=== PATIENT | female | born 1965 | race Caucasian/White ===

== ENCOUNTER → 2017-04-03 | Outpatient (CLI) | payer MEDICAID, OTHER ==
[~2017-04-03] MED LIST: ALBU8.5H2 IH; AMLO5TAB2 PO; ASP81TEC PO; ASPI-892 PO; AZIT500T PO; BSP5T PO; CEFU500T5 PO; CETI10TA20 PO; CLOP75TA PO; COLC0.6T PO; FLT05NA16 NSEACH; FLUO40CA PO; GABA-488 PO; HCT25T PO; HYDR-757 PO; HYDR1TAB PO; IBP800T PO; LAMO100T PO; LEVO500T80 PO; LISI10TA PO; LISI20TA PO; METO25TA6 PO; MTP25TSR PO; OMEP-10 PO; OMEP20CA12 PO; PNT40TEC PO; PRAV10TA23 PO; PRV20T PO; Pantoprazole PO; VENL100T2 PO; VENL75TA6 PO; [UNRECOGNIZED DRUG - CODE] PO; ibuprofen PO
--- NOTE | 2017-04-05 06:34 | ECHOCARDIOGRAPHY REPORT ---
DATE OF SERVICE: 04/03/2017 TWO DIMENSIONAL ECHOCARDIOGRAM REPORT MEASUREMENT: LVID end diastolic 5.4. IVS thickness 1.1. LVPW thickness 1.1. Left atrial diameter 4.2. Ejection fraction 60%. FINDINGS: 1. Technical quality is good. 2. The left ventricle is normal in size with mild left ventricular hypertrophy noted, diffusely systolic function appeared to be normal, estimated ejection fraction 60%, diastolic dysfunction is suggested by Doppler. 3. The left atrium is mildly dilated. No clot or thrombus were seen within the left atrium. 4. The right atrium and right ventricle are normal in size. No clot or thrombus were seen within the right side. 5. Mitral valve is normal in morphology with mild mitral regurgitation noted by color Doppler flow. No mitral valve prolapse. No mitral valve stenosis. 6. Aortic valve is trileaflet with normal opening and closing pattern. No significant aortic valve stenosis or regurgitation was seen. 7. Tricuspid valve is normal in morphology with mild tricuspid regurgitation noted by color Doppler flow. Doppler across the tricuspid valve estimated pulmonary artery pressure of 23+ right atrial pressure. 8. Pulmonic valve is functioning normally. 9. No pericardial effusion. CONCLUSION: 1. Normal left ventricular size and systolic function, estimated ejection fraction is 60%, diastolic dysfunction is suggested by Doppler. 2. Mildly dilated left atrium. 3. Mild mitral and tricuspid regurgitation. 4. Estimated pulmonary artery pressure of 30 mmHg. Job ID: [id number] DocumentID: [id number] Dictated Date: 04/04/2017 16:05:30 Provider Relations Advocate Date: 04/04/2017 20:32:57 Dictated By: MIR PERALTA MD
== END ==
LOC: CARD 09:38
PROVIDERS: ATTEND Physician Assistant
DX: I10 Essential (primary) hypertension (principal); E78.2 Mixed hyperlipidemia; E66.9 Obesity, unspecified; Z72.0 Tobacco use
CPT/HCPCS: 93306

== ENCOUNTER → 2017-04-04 | Outpatient (CLI) | payer MEDICAID, OTHER ==
[~2017-04-04] MED LIST changes: +CATHETER FLUSH 10 ML SYR IV PRN; +REGADENOSON 0.4 MG/5 ML SYR (LEXISCAN) IV ONE
[2017-04-04 09:33] VITALS: BP 144/62
--- NOTE | 2017-04-05 06:08 | STRESS TEST ---
DATE OF SERVICE: 04/04/2017 LEXISCAN MYOVIEW STRESS TEST REPORT REFERRING PHYSICIAN: [facility] [place] Baseline heart rate is 52, baseline blood pressure 144/62. Baseline EKG is sinus rhythm with no ischemic changes. In summary, the patient was injected with 10.76 mCi of technetium-99 Myoview and the resting images were obtained. Then, the patient received 0.4 mg of Lexiscan followed by 31.9 mCi of technetium-99 Myoview. Throughout the test, there were no EKG changes. The resting and stress images were reviewed and compared in the short axis, horizontal long axis and vertical long axis views. Review of the images showed apical thinning with no significant ischemia or infarction. SSS is 4, SDS 3, TID value 0.92. On the gated images, the left ventricle appeared to be normal size with normal contractility. Calculated ejection fraction 63%. CONCLUSION: 1. The patient tolerated Lexiscan well. 2. No ischemia or infarction on SPECT images. 3. Normal left ventricular size with normal contractility. Calculated ejection fraction 63%. Job ID: [id number] DocumentID: [id number] Dictated Date: 04/04/2017 15:04:55 Press Assistant And Feeder Date: 04/04/2017 19:50:20 Dictated By: MIR PERALTA MD
== END ==
LOC: CARD 07:26
PROVIDERS: ATTEND Physician Assistant
DX: I10 Essential (primary) hypertension (principal); E78.2 Mixed hyperlipidemia; E66.9 Obesity, unspecified; Z72.0 Tobacco use
CPT/HCPCS: 78452; 93017

== ENCOUNTER → 2019-02-26 | Outpatient (CLI) | payer OTHER ==
[~2019-02-26] MED LIST changes: -CATHETER FLUSH 10 ML SYR IV PRN; -REGADENOSON 0.4 MG/5 ML SYR (LEXISCAN) IV ONE
== END ==
LOC: CARD 11:19
PROVIDERS: ATTEND Internal Medicine Cardiovascular Disease
DX: R07.89 Other chest pain (principal); I10 Essential (primary) hypertension; E78.5 Hyperlipidemia, unspecified; I08.1 Rheumatic disorders of both mitral and tricuspid valves; Z72.0 Tobacco use
CPT/HCPCS: 93306

== ENCOUNTER → 2019-03-03 | Outpatient (CLI) | payer OTHER ==
[~2019-03-03] MED LIST changes: +CATHETER FLUSH 10 ML SYR IV PRN; +REGADENOSON 0.4 MG/5 ML SYR (LEXISCAN) IV ONE
[2019-03-03 08:52] VITALS: BP 137/67
[2019-03-03 08:55] VITALS: BP 165/77
--- NOTE | 2019-03-03 12:50 | STRESS TEST ---
DATE OF SERVICE: 03/03/2019 LEXISCAN MYOVIEW STRESS TEST REPORT REFERRING PHYSICIAN CARLOS A Mason Baseline heart rate is 54, baseline blood pressure is 137/67, baseline EKG is sinus rhythm with occasional atrial premature contractions. In summary, the patient was injected with 10.83 mCi of technetium-99 Myoview and the resting images were obtained. Then, the patient received 0.4 mg of Lexiscan, followed by 30.4 mCi of technetium-99 Myoview. Throughout the test, there were no EKG changes. The resting and stress images were reviewed and compared in the short axis, horizontal long axis, and vertical long axis views. Review of the images showed breast attenuation affecting the quality of the images. Still there was decreased uptake at the mid to apical anterior wall and anterolateral wall with reversibility. SSS is 5, SDS 5, TID value 1.03. On the gated images, the left ventricle appeared to be in normal size with normal contractility. Calculated ejection fraction 72%. IN CONCLUSION: 1. The patient tolerated Lexiscan well. 2. Breast attenuation with reversible ischemia involving the mid to apical anterior wall and anterolateral wall. 3. Normal left ventricular size with normal contractility. Calculated ejection fraction 72%. Job ID: [id number] DocumentID: [id number] Dictated Date: 03/03/2019 11:29:32 Drop Hammer Setter Up Date: 03/03/2019 12:49:21 Dictated By: MIR PERALTA MD
== END ==
LOC: CARD 07:31
PROVIDERS: ATTEND Internal Medicine Cardiovascular Disease
DX: R07.89 Other chest pain (principal); E78.5 Hyperlipidemia, unspecified; I10 Essential (primary) hypertension; Z72.0 Tobacco use
CPT/HCPCS: 78452; 93017

== ENCOUNTER 2019-03-12 06:34 | Day surgery (SDC) | payer OTHER ==
[~2019-03-12] VITALS: Ht 152.4 cm; Wt 90.7 kg
[~2019-03-12 06:34] MED LIST changes: -CATHETER FLUSH 10 ML SYR IV PRN; -REGADENOSON 0.4 MG/5 ML SYR (LEXISCAN) IV ONE
[2019-03-12] MEDS ORDERED: HEParin (CATH LAB) 2,000 ML IV ONE (06:47)
[2019-03-12] MEDS ORDERED: LIDOCAINE 1% INJ 20 ML 20 ML VIAL ONE (06:47)
[2019-03-12] MEDS ORDERED: NS IV 1000 ML 1,000 ML ONE (06:47)
[2019-03-12] MEDS ORDERED: NS IV 1000 ML 1,000 ML IV SCH ×2 (07:07→10:09)
[2019-03-12 07:18] VITALS: BP 168/74
[2019-03-12 07:28] LABS: HEMOGLOBIN 18.7 G/DL (11.5-16.0); MEAN PLATELET VOLUME 10.1 FL (7.4-10.4); RED CELL DISTRIBUTION WIDTH 14.8 % (10.0-14.5); WHITE BLOOD COUNT 10.7 10^3/uL (4.3-11.0)
--- NOTE | 2019-03-12 07:32 | Diagnostic Imaging Report ---
INDICATION: Preop. Comparison with 07/29/2016. FINDINGS: The lungs are well-aerated. There are no acute infiltrates. The heart is upper limits of normal. There is no evidence of pulmonary edema. No pneumothorax or pleural effusion. IMPRESSION: Postoperative residue with no acute changes. Dictated by: Dictated on workstation # [id number]
[2019-03-12 07:39] LABS: INR 0.9 (0.8-1.4)
[2019-03-12] MEDS ORDERED: METO50TA15 PO (07:45)
[2019-03-12] MEDS ORDERED: DULO60CA58 PO (07:45)
[2019-03-12] MEDS ORDERED: BREX2TAB PO (07:45)
[2019-03-12] MEDS ORDERED: GBPN600T PO (07:45)
[2019-03-12 07:46] LABS: ALANINE AMINOTRANSFERASE 27 U/L (0-55); ALBUMIN 4.2 GM/DL (3.2-4.5); ALKALINE PHOSPHATASE 110 U/L (40-136); BILIRUBIN,TOTAL 0.6 MG/DL (0.1-1.0); BUN/CREATININE RATIO 4; CARBON DIOXIDE 22 MMOL/L (21-32); CHLORIDE 106 MMOL/L (98-107); CHOLESTEROL 137 MG/DL (< 200); CREATININE SERUM 0.81 MG/DL (0.60-1.30); GFR ESTIMATED > 60; GLUCOSE 120 MG/DL (70-105); HDL CHOLESTEROL 25 MG/DL (40-60); POTASSIUM 3.7 MMOL/L (3.6-5.0); SODIUM 142 MMOL/L (135-145); TOTAL PROTEIN 7.2 GM/DL (6.4-8.2); TRIGLYCERIDES 261 MG/DL (<150); VLDL CHOLESTEROL 52 MG/DL (5-40)
[2019-03-12] MEDS ORDERED: MIDAZOLAM 5 MG/5 ML (VERSED) VIAL ONE (08:33)
[2019-03-12] MEDS ORDERED: fentaNYL INJECTION 100 MCG/2 ML AMP ONE ×2 (08:33→10:07)
--- NOTE | 2019-03-12 08:56 | Cardiac Procedure Note-CS/ASA ---
Pre-Procedure Note Pre-Op Procedure Note H&P Reviewed The H&P was reviewed, patient examined and no changes noted. Date H&P Reviewed: March 12, 2019 Time H&P Reviewed: 08:55 Conscious Sedation Pre-Proced Time 08:55 ASA Score 3 For ASA 3 and 4: Consider anesthesia and medical clearance. Also, for patients with a history of failed moderate sedation consider anesthesia. Airway Lungs Heart ASA score ASA 1: a normal healthy patient ASA 2: a patient with a mild systemic disease (mid diabetes, controlled hypertension, obesity x ASA 3: a patient with a severe systemic disease that limits activity (angina , COPD, prior Myocardial infarction) ASA 4: a patient with an incapacitating disease that is a constant threat to life (CHF, renal failure) ASA 5: a moribund patient not expected to survive 24 hrs. (ruptured aneurysm) ASA 6: a declared brain- patient whose organs are being harvested. For emergent operations, add the letter E after the classification Mallampati Classification Grade 3 Sedation Plan Analgesia, Amnesia, Plan communicated to team members, Discussed options with patient/fam, Discussed risks with patient/fam The patient is an appropriate candidate to undergo the planned procedure, sedation, and anesthesia. The patient immediately re-assessed prior to indication. MIR PERALTA MD March 12, 2019 08:56
--- NOTE | 2019-03-12 10:12 | Discharge Inst-Post CATH ---
Discharge Inst-CATH/EP Post Cardiac Cath/EP D/C Inst Follow Up/Plan Appointment with Dr. PERALTA's office in 2-4 weeks <b>CARDIAC CATH/EP PROCEDURE DISCHARGE INSTRUCTIONS</b> Cardiac Rehab Please be expecting a follow up call from Cardiac Rehab within in one week. ACTIVITY * Go Home directly and rest. * Limit activity of the leg (or wrist if it was used) for 7 days including aerobics, swimming, jogging, bicycling, etc. * Restrict stair-climbing for 7 days if possible, if not, climb up with your non -cath leg, then bring together on the same step. * Avoid lifting, pushing, pulling or excessive movement of the affected extremity for 7 days. * Customary sexual activity may be resumed after 2 days-use caution not to use a position that strains or causes pain to the affected extremity. * No driving for 24 hours. * NO SMOKING. * Avoid straining for bowel movements for 7 days. * Gentle walking on level ground is allowed. * Returning to work will depend on the type of procedure and the results. Your doctor will discuss this with you. CALL YOUR DOCTOR FOR ANY OF THE FOLLOWING: *If bleeding from the puncture site occurs- Apply gentle pressure to site with clean cloth and call your doctor or EMS. * If a knot or lump forms under the skin, increases in size, or causes pain. * If bruising appears to be worsening or moving further down your leg instead of disappearing. * Temperature above 101 F. CARE OF YOUR GROIN INCISION; * Bruising or purple discoloration of the skin near the puncture site is common. * You may shower only, no bathtub bathing for 5 days. Be careful to avoid slipping as your leg may feel stiff. * If a closure device was used on your femoral artery, please see the attached guide regarding care of the device and your leg. * Leave dressing on FOR 24 hours. CARE OF YOUR WRIST INCISION; * Bruising or purple discoloration of the skin near the puncture site is common. * You may shower. * DO NOT submerge wrist. * Leave dressing on FOR 24 hours. MIR PERALTA MD March 12, 2019 10:12
[2019-03-12] MEDS ORDERED: PATIENT MAY USE OWN MEDS, ALL PO SCH (10:15)
--- NOTE | 2019-03-12 10:28 | Cardiac Cath Report ---
Cardiac Cath Report Physician (s)/Swine Genetics Researcher (s) Physician MIR PERALTA MD Pre-Procedure Diagnosis Pre-Procedure Diagnosis: coronary artery disease, peripheral arterial disease Post-Procedure Note Procedure Start Date: March 12, 2019 Name of Procedure: left heart catheterization, vein graft angiogram Aortic root angiogram Aortic arch angiogram Abdominal aortogram Bilateral lower extremity runoff Third order Additional imaging X 3 Findings/Procedure Note PROCEDURE NOTE: 54 years old lady with history of coronary artery disease, known to have anomalous right coronary artery, had bypass [place] [address] Castillo to the right coronary artery, had atherectomy to the anterior tibial artery on the right and stent in the iliac artery, had an abnormal stress test with inferior wall ischemia and claudication with lower extremities pain. Abnormal waveform with normal FORD. After explaining the procedure to the patient, all pros and cons were explained , all questions were answered. The patient signed the consent and then she was placed on the cardiac catheterization laboratory. Groin was prepped SL fashion local anesthesia was used. Sheath placed in the left femoral artery. 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 Attempt to evaluate the vein graft with multiple catheter which appeared to be occluded, pigtail catheter was advanced to the LV cavity, pressure was measured , pullback LV to aorta was done, aortic root angiogram was done, I aortic arch angiogram was done, abdominal aortogram was done at 2 imaging 1 at the mid abdominal aorta and 1 imaging with that pigtail just above the bifurcation. Rim catheter was used to cross over and I advanced the rim catheter to the right common iliac artery, runoff to the right leg was done. Then I advanced a stork wire and advanced this long straight catheter to the popliteal artery and DSA imaging to the trifurcation was done, repeat imaging to the foot level of the right leg, the straight catheter was pulled back to the left common iliac artery and runoff to the left leg was done then I injected contrast through this sheath and I did DSA imaging to the left leg at the trifurcation level. At the end of the procedure sheath was removed with manual pressure FINDINGS: Hemodynamics LV 132/13, end-diastolic pressure of 13 Aorta 131/60 mean of 88 ANATOMY: Left Main is bifurcating to left anterior descending and left circumflex artery with no obstructive disease Left Anterior Descending has mild disease nonobstructive disease Left Circumflex has otdj-gj-jesfzqms disease nonobstructive disease Right Coronory Artery has anomalous origin from the left coronary cusp just above the left main coronary artery with known to have a path in between the aorta and the pulmonic artery, the bypass graft that was done in the past is occluded LV Gram was not done Aortic root angiogram showed normal root, normal aorta, no dissection or aneurysm. Aortic arch angiogram showed normal aortic arch, no dissection or aneurysm, origin of the great vessels of the neck were normal. I advanced a multipurpose catheter into the right subclavian artery and did selective angiogram trying to evaluate a CIPRIANO that did not appear to be patent. No other vein grafts were noted coming off the aorta. Next Abdominal aortogram showed small abdominal aorta, origin of both renal arteries were normal, inferior mesenteric artery is normal, bifurcation is normal. Repeat abdominal aortogram at the bifurcation level showed patent stent in the right common iliac artery with mild disease nonobstructive disease, left common iliac artery is normal Right leg runoff done on multiple phases and multiple imaging as described above , the anterior tibial artery is occluded is very small artery, the peroneal artery tapered down into a hairline artery, the posterior tibial artery is providing excellent flow down to the foot. Not amendable to intervention Left leg runoff showed good flow down to the trifurcation, evaluation of the trifurcation with DSA showed excellent flow with no significant obstructive disease CONCLUSION: 1. 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 2. Normal left coronary system 3. Normal left ventricular end-diastolic pressure 4. Normal aortic root and aortic arch and great vessels of the neck, no bypass grafts were seen coming off the system 5. Normal right subclavian artery with no bypass graft or CIPRIANO 6. Normal abdominal aorta and renal arteries 7. Patent stent in the right common iliac artery with mild disease 8. Right anterior tibial artery is occluded, very small artery, right peroneal artery is occluded down at the foot level, very small artery not amendable to intervention 9. Mild peripheral arterial disease at the left leg with no significant obstructive disease DISCUSSION AND RECOMMENDATION: Medical therapy, will discuss with the patient the possibility of redo bypass surgery Anesthesia Type: Conscious Sedation Estimated blood loss (mL): 35 ml Contrast Amount: 203 ml Total Radiation Dose: 1538 mGy Post-Procedure Diagnosis Post-operative diagnosis: Coronary artery disease, anomalous right coronary system Peripheral arterial disease Hypertension Hyperlipidemia MIR PERALTA MD March 12, 2019 10:28
[2019-03-12 10:55] VITALS: BP 109/63
[2019-03-12 15:25] VITALS: BP 109/63
[2019-03-13] VITALS (8 sets, daily range): BP systolic 121–139; BP diastolic 56–73
--- NOTE | 2019-03-14 09:05 | NUR ---
interventions were performed on 03/12/19 not 03/13/19 Addendum: 03/14/19 at 0907 by WILFRED LOREDO RN Amended: Links added.
--- NOTE | 2019-03-14 09:06 | NUR ---
assessment was done on 03/12/19, not 03/13/19 Addendum: 03/14/19 at 0907 by WILFRED LOREDO RN Amended: Links added.
== END 2019-03-12 15:25 | disposition home or self-care (01) ==
LOC: CATH 06:34 → SDC 10:57 → CATH 15:25
PROVIDERS: ATTEND Internal Medicine Cardiovascular Disease
DX: I25.10 Atherosclerotic heart disease of native coronary artery without angina pectoris (principal); I73.9 Peripheral vascular disease, unspecified; I10 Essential (primary) hypertension; E78.5 Hyperlipidemia, unspecified; Z79.82 Long term (current) use of aspirin; Z79.899 Other long term (current) drug therapy; I65.23 Occlusion and stenosis of bilateral carotid arteries; F17.210 Nicotine dependence, cigarettes, uncomplicated; E66.9 Obesity, unspecified; Z79.02 Long term (current) use of antithrombotics/antiplatelets; Z68.39 Body mass index [BMI] 39.0-39.9, adult
CPT/HCPCS: 36221; 36415; 71045; 75625; 75716; 80053; 80061; 85027; 85610; 85730; 87081; 93459; 93567

== ENCOUNTER 2022-03-22 06:17 | Outpatient (CLI) | payer SELFPAY ==
[~2022-03-22] VITALS: Ht 154.9 cm; Wt 89.0 kg
[~2022-03-22 06:17] MED LIST changes: +BREX2TAB PO; +DULO60CA59 PO; +GBPN600T PO; -LEVO500T80 PO; +LEVO500T81 PO; +METO50TA15 PO
[2022-03-24] MEDS ORDERED: PANT40TA52 PO (09:17)
== END 2022-03-24 09:34 | disposition home or self-care (01) ==
LOC: PREOP 06:17
PROVIDERS: ATTEND Surgery
DX: Z01.818 Encounter for other preprocedural examination (principal)

== ENCOUNTER → 2022-04-04 | Outpatient (CLI) | payer OTHER ==
[~2022-04-04] MED LIST changes: +PANT40TA52 PO
== END ==
LOC: CARD 14:42
PROVIDERS: ATTEND Physician Assistant
DX: I08.0 Rheumatic disorders of both mitral and aortic valves (principal); I10 Essential (primary) hypertension; I25.10 Atherosclerotic heart disease of native coronary artery without angina pectoris
CPT/HCPCS: 93306

== ENCOUNTER → 2022-04-13 | Outpatient (CLI) | payer SELFPAY | END | disposition home or self-care (01) | LOC: PREOP 05:39 | PROVIDERS: ATTEND Surgery | DX: Z01.818 Encounter for other preprocedural examination (principal) ==

== ENCOUNTER 2022-04-21 07:46 | Day surgery (SDC) | payer OTHER ==
[~2022-04-21] VITALS: Ht 154.9 cm; Wt 89.0 kg
[2022-04-21] VITALS (11 sets, daily range): BP systolic 105–140; BP diastolic 43–98
[2022-04-21] MEDS ORDERED: ceFAZolin 2 GM IV Premixed 50 ML ONE (08:25)
[2022-04-21] MEDS: LACTATED RINGERS 1,000 ML IV PRN ×2 (08:30→10:30)
[2022-04-21] MEDS ORDERED: LIDOCAINE/EPI 2% 1:200,00 (XYLOCAINE) 20 ML VIAL ONE ×2 (09:01→09:41)
[2022-04-21] MEDS ORDERED: ceFAZolin 2 GM IV Premixed 50 ML IV ONE (09:30)
--- NOTE | 2022-04-21 09:37 | Progress Note-Pre Operative ---
Pre-Operative Progress Note H&P Reviewed The H&P was reviewed, patient examined and no changes noted. Time Seen by Provider: 09:35 Date H&P Reviewed: Apr 21, 2022 Time H&P Reviewed: 09:35 Pre-Operative Diagnosis: cholelithiasis/cholecystitis CAMILO ESCAMILLA DO Apr 21, 2022 09:37
[2022-04-21] MEDS ORDERED: LIDOCAINE PF 2% 5 ML (XYLOCAINE) VIAL ONE (09:50)
[2022-04-21] MEDS ORDERED: proPOfol 200 MG/20 ML (DIPRIVAN) VIAL IV ONE (09:50)
[2022-04-21] MEDS ORDERED: ROCURONIUM 50 MG/5 ML (ZEMURON) VIAL IV ONE (09:50)
[2022-04-21] MEDS ORDERED: MIDAZOLAM 2 MG/2 ML (VERSED) VIAL ONE (09:50)
[2022-04-21] MEDS ORDERED: fentaNYL INJ 100 MCG/2 ML AMP ONE (09:50)
[2022-04-21] MEDS ORDERED: IOHEXOL 300 MG/ML 30 ML (OMNIPAQUE 300) VIAL IV ONE (10:45)
[2022-04-21] MEDS ORDERED: SEVOFLURANE (ULTANE) 15 ML INHAL SOLN ONE (10:51)
--- NOTE | 2022-04-21 10:51 | Progress Note-Post Operative ---
Post-Operative Progess Note Surgeon (s)/Municipal Court Judge (s) Surgeon CAMILO ESCAMILLA DO Municipal Court Judge: Nancy Pre-Operative Diagnosis cholelithiasis/cholecystitis Post-Operative Diagnosis same plus fatty liver Procedure & Operative Findings Date of Procedure 04/21/22 Procedure Performed/Findings PROCEDURE: Laparoscopic cholecystectomy with intraoperative cholangiogram. COMPLICATIONS: None. PROCEDURE: The patient was taken to the operating suite and was prepped and draped in sterile fashion. A surgical pause was performed. Just superior to the umbilicus, a 12 mm incision was made. Dissection was taken down to the fascia, which was then scored and grasped with a Phan and the abdomen was then entered. An 0 Vicryl suture was placed in a [id number]-hb-[id number] fashion and a Parada trocar was placed and secured. Pneumoperitoneum was achieved. A 5mm trochar place in the subxyphoid and 2 in the right upper quadrant using the [employer] system all done under direct visualization. The gallbladder was then grasped and elevated in the superior direction. Another grasper placed at Perez's pouch and pulled in the infero-lateral direction. The cystic duct and cystic artery were then dissected out. Clip was placed on the distal portion of the cystic duct which was then partially transected. An arrow catheter was inserted into the duct. The cholangiogram was then performed. A very large common duct was seen and questionable filling defect at the distal portion just before ampulla; however, contrast made its way into the duodenum. Catheter removed. Clips were placed on proximal portion of the cystic duct and then the duct was then transected. Clips had been placed along the proximal and distal portion of the cystic artery; which was then transected. Hook cautery was used to dissect the gallbladder from the gallbladder fossa achieving hemostasis. The gallbladder was placed in an Endobag and removed through the 12 mm trocar site. The abdomen was then reinspected. Copious amounts of irrigation were used to irrigate the abdomen and there were no signs of active bleeding. Hemostasis had been achieved. The 12 mm fascial defect was then closed with 0 Vicryl suture that had been placed in a [id number]-[id number] fashion. The abdomen was then desufflated, the trocars were removed. The abdomen was then washed and dried. The skin was then closed using 4-0 Monocryl in a subcuticular fashion. The abdomen was washed and dried and Skin Affix was place over incisions. Patient tolerated the procedure well without any complications and was taken to the recovery room in stable condition. Dr. Cruz assisted on this case helping to make incisions, close incisions, identify anatomy and hold anatomy out of the way. Anesthesia Type GET Estimated Blood Loss Estimated blood loss (mL): less than 5ml Specimens/Packing Specimens Removed GB and contents CAMILO ESCAMILLA DO Apr 21, 2022 10:51
[2022-04-21] MEDS ORDERED: NEOSTIGMINE (BLOXIVERZ ) 1 MG/1ML 10 ML VIAL ONE (10:52)
[2022-04-21] MEDS ORDERED: GLYCOPYRROLATE 0.2 MG/ML (ROBINUL) 2 ML VIAL ONE (10:52)
[2022-04-21] MEDS ORDERED: ACHD5005 PO (10:52)
--- NOTE | 2022-04-21 10:53 | Discharge Inst-Surgical ---
Discharge Inst-Surgical Depart Medication/Instructions New, Converted or Re-Newed RX: Transmitted to Pharmacy Patient Instructions Follow up Appt: Make appointment for 1 week. [phone] Instructions: No lifting greater than 20 pounds. No strenuous activity. May shower in 24 hours, no tub bath or soaking. Use incentive spirometer at home as directed. No Smoking Skin/Wound Care: May remove bandages in am. You need to leave the Dermabond on incision it will fall off on it's own. Symptoms to Report: Appetite Changes, Extremity Discoloration, Numbness/Tingling, Swelling Increased, Bleeding Excessive, Eyesight Changes, Pain Increased, Urine Color Change, Constipation(Persistent), Fever over 101 degree F, Pain/Pressure in chest, Urinating Difficulty, Cough Up/Vomit Blood, Heart Beat Irreg/Pounding, Pain/Pressure in jaw, Cramps in feet or legs, Lightheadedness, Pain/Pressure in shoulder, Diarrhea(Persistent), Memory Changes Suddenly, Questions/Concerns, Weight gain consecutive days, Dizziness/Fainting, Nausea/Vomiting, Shortness of Breath, Weight gain over 2 pounds If questions or concerns contact your physician Or seek help at emergency department. Activity Activity as Tolerated: Yes Activity Instructions: Avoid Stress to Incision Driving Instructions: No Driving/Refer to Diet Discharge Diet: Avoid Fatty Foods, Low Fat/Low Cholesterol Diet After 24 Hours: Clear Liquid if Nauseous If Any Problems/Questions/Issu: Contact Your Physician, Go to Emergency Room Skin/Wound Care Infection Signs and Symptoms: Increased Redness, Foul Odor of Wound, Increased Drainage, Skin Itchy or Has a Rash, Increased Swelling, Temperature Above 101 F Wound Care Comment: heating pad to shoulder or neck tonight for pain Bathing Instructions: Shower Stitches/Bella/Dermabond Dis: Dermabond Ice Pack: Ice On and Off Site CAMILO ESCAMILLA DO Apr 21, 2022 10:53
[2022-04-21] MEDS ORDERED: HYDROmorphone 2 MG/ML VIAL (DILAUDID) ONE (10:56)
[2022-04-21] MEDS ORDERED: RT-ALBUTEROL SULF 2.5 MG/3 ML PRE-MIX VIAL ONE (11:20)
[2022-04-21] MEDS ORDERED: SUGAMMADEX 500 MG/5 ML VIAL (BRIDION) IV ONE (11:29)
[2022-04-21] MEDS ORDERED: RT-ALBUTEROL SULF 2.5 MG/3 ML PRE-MIX VIAL INH ONE (12:00)
--- NOTE | 2022-04-21 12:13 | Diagnostic Imaging Report ---
INDICATION: Fluoroscopy during intraoperative cholangiogram. FINDINGS: Fluoroscopy was provided in the OR during intraoperative cholangiogram. 15 seconds of fluoroscopic time was utilized. 82 images were obtained demonstrating contrast being injected via the cystic duct remnant. There is significant dilatation of the extrahepatic bile duct. There is an area of irregular narrowing of the distal common duct. Contrast does pass into the duodenum. No filling defects are seen. IMPRESSION: There is significant dilatation of the extrahepatic bile duct with focal irregular narrowing of the distal duct. A mass cannot be entirely excluded and correlation with CT would be useful for further evaluation. Dictated by: Dictated on workstation # [id number]
--- NOTE | 2022-04-21 15:01 | Anesthesia-General Post-Op ---
General Patient Condition Mental Status/LOC: Same as Preop Cardiovascular: Satisfactory Nausea/Vomiting: Absent Respiratory: Satisfactory Pain: Controlled Complications: Absent Post Op Complications Complications None Follow Up Care/Instructions Patient Instructions None needed. Anesthesia/Patient Condition Patient Condition Patient is doing well, no complaints, stable vital signs, no apparent adverse anesthesia problems. No complications reported per nursing. JOAO PEREZ CRNA Apr 21, 2022 15:01
== END 2022-04-21 13:20 ==
LOC: SDC 07:46
PROVIDERS: ATTEND Surgery
DX: K80.10 Calculus of gallbladder with chronic cholecystitis without obstruction (principal); I10 Essential (primary) hypertension; E78.5 Hyperlipidemia, unspecified; I25.10 Atherosclerotic heart disease of native coronary artery without angina pectoris; E66.9 Obesity, unspecified; Z68.37 Body mass index [BMI] 37.0-37.9, adult; F17.210 Nicotine dependence, cigarettes, uncomplicated; Z79.82 Long term (current) use of aspirin
CPT/HCPCS: 76000; 87081; 88304

== ENCOUNTER → 2022-05-10 | Outpatient (CLI) | payer OTHER ==
[~2022-05-10] MED LIST changes: +ACHD5005 PO; +CATHETER FLUSH 10 ML SYR IVP PRN
--- NOTE | 2022-05-10 09:17 | Diagnostic Imaging Report ---
INDICATION: Dilated bile duct. Patient was administered 5.2 mCi technetium 99m Choletec intravenously and imaging over the abdomen was performed. There is homogeneous uptake of activity by the liver with prompt excretion of activity into the common duct. Normal passage of activity into the small bowel is noted. No abnormal accumulations of activity are seen to suggest bile leak. IMPRESSION: Status post cholecystectomy. The common bile duct appears to be patent. No definite bile leak is detected. Dictated by: Dictated on workstation # [id number]
== END ==
LOC: CARD 07:43
PROVIDERS: ATTEND Surgery
DX: K83.8 Other specified diseases of biliary tract (principal); Z90.49 Acquired absence of other specified parts of digestive tract
CPT/HCPCS: 78226; A9537

== ENCOUNTER 2022-11-24 09:00 | Day surgery (SDC) | payer OTHER ==
[~2022-11-24] VITALS: Ht 154.9 cm; Wt 74.4 kg
[2022-11-24] VITALS (12 sets, daily range): BP systolic 116–143; BP diastolic 57–82
[2022-11-24 07:30] LABS: BILIRUBIN,URINE NEGATIVE (NEGATIVE); CLARITY,URINE CLEAR; COLOR,URINE YELLOW; GLUCOSE, URINE (UA) NEGATIVE (NEGATIVE); HEMATOCRIT 49 % (35-52); KETONES,URINE NEGATIVE (NEGATIVE); LEUKOCYTE ESTERASE ,URINE NEGATIVE (NEGATIVE); MEAN CORPUSCULAR HEMOGLOBIN 30 pg (25-34); MEAN CORPUSCULAR HGB CONC 34 g/dL (32-36); MEAN CORPUSCULAR VOLUME 87 fL (80-99); MEAN PLATELET VOLUME 10.2 fL (9.0-12.2); NITRITE,URINE NEGATIVE (NEGATIVE); PLATELET COUNT 241 10^3/uL (130-400); PROTEIN,URINE NEGATIVE (NEGATIVE); WHITE BLOOD COUNT 9.3 10^3/uL (4.3-11.0)
--- NOTE | 2022-11-24 07:30 | Diagnostic Imaging Report ---
INDICATION: Chest pain. EXAMINATION: Portable chest at 7:06 AM. FINDINGS: There are postop changes from a median sternotomy. The heart size and pulmonary vascularity are normal. The lungs are clear. There are no effusions or pneumothoraces. IMPRESSION: Negative chest. Dictated by: Dictated on workstation # [id number]
[2022-11-24 07:43] LABS: BACTERIA,URINE NEGATIVE /HPF; SQUAMOUS EPITHELIAL CELL,UR 0-2 /HPF
[2022-11-24 07:51] LABS: ALBUMIN 4.2 GM/DL (3.2-4.5); BILIRUBIN,TOTAL 0.9 MG/DL (0.1-1.0); CALCIUM 9.5 MG/DL (8.5-10.1); CREATININE SERUM 0.74 MG/DL (0.60-1.30); POTASSIUM 3.8 MMOL/L (3.6-5.0); TOTAL PROTEIN 7.1 GM/DL (6.4-8.2)
[2022-11-24 07:53] LABS: INR 0.9 (0.8-1.4); PROTHROMBIN TIME PATIENT 12.6 SEC (12.2-14.7)
--- NOTE | 2022-11-24 08:34 | Cardiac Procedure Note-CS/ASA ---
Pre-Procedure Note Pre-Op Procedure Note Date of Available H&P: Nov 14, 2022 Date H&P Reviewed: Nov 24, 2022 Time H&P Reviewed: 08:34 History & Physical: H&P Reviewed, Patient Examed, No changes noted Pre-Operative Diagnosis: PAD Conscious Sedation Pre-Proced Time 08:34 ASA Score 3 For ASA 3 and 4: Consider anesthesia and medical clearance. Also, for patients with a history of failed moderate sedation consider anesthesia. Airway Lungs Heart ASA score ASA 1: a normal healthy patient ASA 2: a patient with a mild systemic disease (mid diabetes, controlled hypertension, obesity ASA 3: a patient with a severe systemic disease that limits activity (angina, COPD, prior Myocardial infarction) ASA 4: a patient with an incapacitating disease that is a constant threat to life (CHF, renal failure) ASA 5: a moribund patient not expected to survive 24 hrs. (ruptured aneurysm) ASA 6: a declared brain- patient whose organs are being harvested. For emergent operations, add the letter E after the classification Mallampati Classification Grade 3 Sedation Plan Analgesia, Amnesia, Plan communicated to team members, Discussed options with patient/fam, Discussed risks with patient/fam The patient is an appropriate candidate to undergo the planned procedure, sedation, and anesthesia. The patient immediately re-assessed prior to indication. MIR PERALTA MD Nov 24, 2022 08:34
[~2022-11-24 09:00] MED LIST changes: -CATHETER FLUSH 10 ML SYR IVP PRN; +CLOP-31 PO; +HEParin (CATH LAB) 2,000 ML IV ONE; +HEParin 1000 UNIT/ML (10ML VIAL) FOR BOLUS ONE; +LEVO-55 PO; -LEVO500T81 PO; +LIDOCAINE 1% INJ 20 ML VIAL ONE; +METF750T45 PO; +METO-333 PO; +MIDAZOLAM 5 MG/5 ML (VERSED) VIAL ONE; +NITRO DRIP 25000 MCG/D5W 0 ML IV ONE; +NS IV 1000 ML 1,000 ML IV SCH; +NS IV 1000 ML 1,000 ML ONE; +SEMA0.25 SQ; +fentaNYL INJ 100 MCG/2 ML AMP ONE
[2022-11-24] MEDS ORDERED: fentaNYL INJ 100 MCG/2 ML AMP ONE (09:30)
[2022-11-24] MEDS ORDERED: MIDAZOLAM 2 MG/2 ML (VERSED) VIAL ONE ×2 (09:30→09:47)
[2022-11-24] MEDS ORDERED: LIDOCAINE 1% INJ 20 ML VIAL ONE ×2 (09:32→09:39)
[2022-11-24] MEDS ORDERED: PATIENT MAY USE OWN MEDS, ALL PO SCH (10:45)
--- NOTE | 2022-11-24 10:50 | Peripheral Report ---
Peripheral Report Physician (s)/Form Presser (s) Physician MIR PERALTA MD Pre-Procedure Diagnosis Pre-Procedure Diagnosis: PAD Post-Procedure Note Procedure Start Date: Nov 24, 2022 Name of Procedure: Bilateral lower extremity runoff First order Additional imaging Findings/Procedure Note PROCEDURE NOTE: 57-year-old lady with extensive peripheral arterial disease, had an abnormal FORD. Has been having increasing claudication scheduled for peripheral angiogram. After explaining the procedure to the patient, all pros and cons were explained, all questions were answered. The patient signed the consent and then she was placed on the cardiac catheterization laboratory. The patient was placed on the cardiac catheterization laboratory. Groin was prepped SL fashion local anesthesia was used. Sheath placed in the left femoral artery, using a rim catheter I placed it at the right common iliac artery, runoff to the right leg was done. Patient has severe in-stent restenosis in the right common iliac artery. I advanced a Storq wire, had significant difficulty advancing the wire, I try to advance the catheter without success subsequently I realize that probably the catheter went through the struts in the iliac artery. I used a Glidewire then I tried mini glide without success subsequently I accessed the right groin. Did runoff to the right leg again through the sheath then I attempted to crossed retrograde with a Storq and Glidewire then I used mini glide then I was successful in crossing using command 18 short-tip with secretary administrative assistant of mini 18 catheter. I advanced the mini 18 through the stent to the abdominal aorta, angiogram showed good positioning. Then I attempted to advance a balloon without success and I realized that probably also retrograde went through the struts I backed down with the wire and try to redirection with multiple attempts without success then I aborted and I tried from the left groin using IM guide then UF curved catheter I was able to advance command 18 antegrade. Parked it in the common femoral artery, I attempted to advance a balloon and at the overlap area of the 2 stents in the iliac artery I was unable to advance the balloon probably the wire went again through the struts at that point I decided to abort. Pulled back the catheter advanced the room again Plaisted at the bifurcation and did runoff to the right leg then did runoff to the left leg no complication noted. ACT was 211, I decided to leave the sheath in place and do manual pressure once the ACT is more favorable FINDINGS: Left lower extremity: Good flow down to the trifurcation, atherosclerotic plaque at the left common iliac artery. Right lower extremity: Iliac stent has severe calcified stenosis, failed multiple attempt to cross the lesion retrograde and antegrade. No significant obstructive disease at the SFA on the right The posterior tibial artery is occluded and the peroneal artery is occluded distally. CONCLUSIONS: 1. Severe in-stent restenosis at the right common iliac artery, failed attempt to intervention, will arrange for intervention at a tertiary care center 2. Severe stenosis below the knee on the right lower extremity 3. Atherosclerotic plaque with moderate stenosis at the left common iliac artery DISCUSSION AND RECOMMENDATIONS: Continue to maximize medical therapy and arrange for intervention at a tertiary care center with a backup of vascular surgery Anesthesia Type: Conscious Sedation Estimated blood loss (mL): 35 ml Contrast Amount: 50 ml Total Radiation Dose: 434 mGy Post-Procedure Diagnosis Post-operative diagnosis: Claudication Peripheral arterial disease Hypertension Hyperlipidemia MIR PERALTA MD Nov 24, 2022 10:50
[2022-11-24] MEDS: NS IV 1000 ML 1,000 ML IV SCH ×2 (11:00→17:35)
[2022-11-24] MEDS ORDERED: MIDAZOLAM 2 MG/2 ML (VERSED) VIAL IVP ONE (12:15)
[2022-11-24] MEDS ORDERED: fentaNYL INJ 100 MCG/2 ML AMP IVP ONE (12:15)
[2022-11-24] MEDS ORDERED: ONDANSETRON 4 MG/2 ML (SDV) Z0FRAN ONE (13:27)
[2022-11-24] MEDS ORDERED: fentaNYL INJ 100 MCG/2 ML AMP IVP PRN (13:30)
[2022-11-24] MEDS ORDERED: fentaNYL INJ 100 MCG/2 ML AMP IVP NR (13:30)
[2022-11-24] MEDS ORDERED: ACETAMINOPHEN 500 MG TAB (TYLENOL) PO PRN (13:30)
[2022-11-24] MEDS ORDERED: ONDANSETRON 4 MG/2 ML (SDV) Z0FRAN IVP PRN (13:30)
[2022-11-24] MEDS ORDERED: oxyCODONE/APAP 5/325MG (PERCOCET 5) TABLET PO NR (15:15)
[2022-11-24] MEDS ORDERED: HYDROmorphone 2 MG/ML VIAL (DILAUDID) IVP NR (15:15)
[2022-11-24] MEDS: meTOprolol TARTRATE 25 MG (LOPRESSOR) TABLET PO SCH (19:49)
[2022-11-24] MEDS: PRAVASTATIN 20 MG TABLET PO SCH (19:55)
[2022-11-24] MEDS ORDERED: lisINopril 20 MG (PRINIVIL) TABLET PO SCH (21:00)
[2022-11-24] MEDS ORDERED: PRAVASTATIN SODIUM 10 MG PO SCH (21:00)
[2022-11-25] MEDS: NS IV 1000 ML 1,000 ML IV SCH (06:00)
[2022-11-25] MEDS ORDERED: METF750T45 PO (08:04)
--- NOTE | 2022-11-25 08:05 | Discharge Inst-Post CATH ---
Discharge Inst-CATH/EP Problems Reviewed?: Yes Post Cardiac Cath/EP D/C Inst Follow Up/Plan Hold Metformin for [address] Valdes in 2 weeks <b>CARDIAC CATH/EP PROCEDURE DISCHARGE INSTRUCTIONS</b> ACTIVITY * Go Home directly and rest. * Limit activity of the leg (or wrist if it was used) for 7 days including aerobics, swimming, jogging, bicycling, etc. * Restrict stair-climbing for 7 days if possible, if not, climb up with your non-cath leg, then bring together on the same step. * Avoid lifting, pushing, pulling or excessive movement of the affected extremity for 7 days. * Customary sexual activity may be resumed after 2 days-use caution not to use a position that strains or causes pain to the affected extremity. * No driving for 24 hours. * NO SMOKING. * Avoid straining for bowel movements for 7 days. * Gentle walking on level ground is allowed. * Returning to work will depend on the type of procedure and the results. Your doctor will discuss this with you. CALL YOUR DOCTOR FOR ANY OF THE FOLLOWING: *If bleeding from the puncture site occurs- Apply gentle pressure to site with clean cloth and call your doctor or EMS. * If a knot or lump forms under the skin, increases in size, or causes pain. * If bruising appears to be worsening or moving further down your leg instead of disappearing. * Temperature above 101 F. CARE OF YOUR GROIN INCISION; * Bruising or purple discoloration of the skin near the puncture site is common. * You may shower only, no bathtub bathing for 5 days. Be careful to avoid slipping as your leg may feel stiff. * If a closure device was used on your femoral artery, please see the attached guide regarding care of the device and your leg. * Leave dressing on FOR 24 hours. CARE OF YOUR WRIST INCISION; * Bruising or purple discoloration of the skin near the puncture site is common. * You may shower. * DO NOT submerge wrist. * Leave dressing on FOR 24 hours. MIR VALDES MD Nov 25, 2022 08:05
[2022-11-25] MEDS: PRAVASTATIN 20 MG TABLET PO SCH (08:37)
[2022-11-25] MEDS: meTOprolol TARTRATE 25 MG (LOPRESSOR) TABLET PO SCH (08:38)
[2022-11-25] MEDS ORDERED: CLOPIDOGREL 75 MG (PLAVIX) TABLET PO SCH (09:00)
[2022-11-25] MEDS ORDERED: ASPIRIN E.C. 81 MG (ECOTRIN) TAB PO SCH (09:00)
[2022-11-25] MEDS ORDERED: PANTOPRAZOLE 40 MG (PROTONIX) TAB PO SCH (09:00)
[2022-11-25] MEDS ORDERED: amLODIPine 5 MG (NORVASC) TAB PO SCH (09:00)
--- NOTE | 2022-11-25 09:22 | Cardiology Progress Note ---
Subjective Date Seen by Provider: Nov 25, 2022 Time Seen by Provider: 09:21 Subjective/Events-last exam Patient is laying down, groin is healed well, no new complaint Review of Systems General: No Chills, No Night Sweats, No Fatigue, No Malaise, No Appetite, No Other HEENT: No Head Aches, No Visual Changes, No Eye Pain, No Ear Pain, No Dysphasia, No Sinus Congestion, No Post Nasal Drip, No Sore Throat, No Other Pulmonary: No Dyspnea, No Cough, No Pleuritic Chest Pain, No Other Cardiovascular: No: Chest Pain, Palpitations, Orthopnea, Paroxysmal Noc. Dyspnea, Edema, Lt Headedness, Other Objective-Cardiology Exam Last Set of Vital Signs Vital Signs 11/25/22 07:41 Temp 36.1 Pulse 90 Resp 14 B/P (MAP) 175/92 (119) Pulse Ox 95 O2 Delivery Nasal Cannula O2 Flow Rate 2.00 I&O Intake and Output 11/25/22 00:00 Intake Total 1600 ml Output Total 800 ml Balance 800 ml Intake Oral 600 ml IV Total 1000 ml Output Urine Total 800 ml General: Alert, Oriented X3, Cooperative HEENT: Atraumatic, PERRLA Neck: Supple, No JVD, No Thyromegaly Lungs: Clear to Auscultation, Normal Air Movement Heart: Regular Rate, Normal S1, Normal S2, No Murmurs Abdomen: Normal Bowel Sounds, Soft, No Tenderness, No Hepatosplenomegaly, No Masses Extremities: No Clubbing, No Cyanosis, No Edema, Normal Pulses, No Tenderness/Swelling Skin: No Rashes, No Breakdown, No Significant Lesion Neuro: Normal Gait, Normal Speech, Strength at 5/5 X4 Ext, Normal Tone, Sensation Intact Psych/Mental Status: Mental Status NL, Mood NL A/P-Cardiology Admission Diagnosis Claudication Peripheral arterial disease Hypertension Hyperlipidemia Diabetes mellitus. Assessment/Plan Peripheral arterial disease, extensive disease, attempt for intervention for in- stent restenosis in the right common iliac artery has failed. Scheduled for angiogram at [facility] with backup of surgery Hypertension, continue current medication Hyperlipidemia, monitor lipids Diabetes mellitus, hold metformin for 48 hours MIR PERALTA MD Nov 25, 2022 09:22
== END 2022-11-25 09:37 | disposition home or self-care (01) ==
LOC: CATH 09:00 → ICU 11:06 → CATH 11-25 09:37
PROVIDERS: ATTEND Internal Medicine Cardiovascular Disease
DX: I70.213 Atherosclerosis of native arteries of extremities with intermittent claudication, bilateral legs (principal); E11.42 Type 2 diabetes mellitus with diabetic polyneuropathy; T82.856A Stenosis of peripheral vascular stent, initial encounter; I10 Essential (primary) hypertension; E78.5 Hyperlipidemia, unspecified; E11.9 Type 2 diabetes mellitus without complications; Y82.8 Other medical devices associated with adverse incidents; Z79.84 Long term (current) use of oral hypoglycemic drugs; Z79.899 Other long term (current) drug therapy
CPT/HCPCS: 36245; 36248; 71045; 75716; 80053; 80061; 81000; 85027; 85610; 85730; 87081; 93005; C1726; C1769 ×3; C1887 ×3; C1894 ×2; 36415

== ENCOUNTER 2022-12-04 17:08 | Emergency (ER) | payer OTHER ==
[~2022-12-04] VITALS: Ht 152 cm; Wt 72.0 kg
[~2022-12-04 17:08] MED LIST changes: -HEParin (CATH LAB) 2,000 ML IV ONE; -HEParin 1000 UNIT/ML (10ML VIAL) FOR BOLUS ONE; -LIDOCAINE 1% INJ 20 ML VIAL ONE; -MIDAZOLAM 5 MG/5 ML (VERSED) VIAL ONE; -NITRO DRIP 25000 MCG/D5W 0 ML IV ONE; -NS IV 1000 ML 1,000 ML IV SCH; -NS IV 1000 ML 1,000 ML ONE; -fentaNYL INJ 100 MCG/2 ML AMP ONE
[2022-12-04] MEDS ORDERED: ADENOSINE 6 MG/2 ML (ADENOCARD) VIAL IV ONE ×2 (17:17→17:30)
[2022-12-04] MEDS ORDERED: NS IV 1000 ML 1,000 ML IV STA (17:20)
[2022-12-04 17:28] LABS: BASOPHILS # (AUTO) 0.1 10^3/uL (0.0-0.1); BASOPHILS % (AUTO) 1 % (0-10); EOSINOPHILS # (AUTO) 0.3 10^3/uL (0.0-0.3); EOSINOPHILS % (AUTO) 2 % (0-10); HEMATOCRIT 47 % (35-52); HEMOGLOBIN 16.9 g/dL (11.5-16.0); LYMPHOCYTES # (AUTO) 6.4 10^3/uL (1.0-4.0); LYMPHOCYTES % (AUTO) 43 % (12-44); MEAN CORPUSCULAR HEMOGLOBIN 31 pg (25-34); MEAN CORPUSCULAR HGB CONC 36 g/dL (32-36); MEAN CORPUSCULAR VOLUME 86 fL (80-99); MEAN PLATELET VOLUME 10.3 fL (9.0-12.2); MONOCYTES # (AUTO) 0.8 10^3/uL (0.0-1.0); MONOCYTES % (AUTO) 6 % (0-12); NEUTROPHILS # (AUTO) 7.3 10^3/uL (1.8-7.8); NEUTROPHILS % (AUTO) 49 % (42-75); PLATELET COUNT 325 10^3/uL (130-400); WHITE BLOOD COUNT 14.9 10^3/uL (4.3-11.0)
--- NOTE | 2022-12-04 17:28 | ED Cardiac General ---
History of Present Illness General Chief Complaint: Chest Pain Stated Complaint: IRR HEART RATE Source: patient Exam Limitations: no limitations History of Present Illness Date Seen by Provider: Dec 04, 2022 Time Seen by Provider: 17:15 Initial Comments Patient is a 57-year-old female history of coronary artery disease and peripheral vascular disease who presents to the emergency room with a chief complaint of rapid heart beat, shortness of breath. Symptom onset approximately 45 minutes prior to arrival. She was recently in the hospital for peripheral vascular disease intervention and is scheduled for later in the week and intervention in the right iliac. She states she has been taking a little bit of cold medication and does smoke. She has never had rapid heartbeat/SVT in the past. No fevers, chills, cough or congestion. She denies nausea vomiting or diarrhea. Normal urination. Has had some irregularity in her home medications due to recent hospitalization. Is a diabetic. Prior to my evaluation of the patient I was handed the EKG which showed SVT at 152. Blood pressure was reported to me as normal. When I went into the room just after the EKG was obtained her nurse had had the patient Valsalva and she spontaneously converted to a normal sinus rhythm at 73 bpm, complete resolution of her discomfort, shortness of breath Timing/Duration: 1 hour Severity: moderate Activities at Onset: none Prior CP/Workup: cardiac cath, other (PVS) NTG SL ENGINEERING SPECIALIST: No ASA po ENGINEERING SPECIALIST: Yes Associated Systoms: Malaise, Shortness of Air Allergies and Home Medications Allergies Coded Allergies: adhesive tape (Unverified Allergy, Severe, Rash, 03/24/22) Patient Home Medication List Home Medication List Reviewed: Yes Amlodipine Besylate (Amlodipine Besylate) 5 Mg Tablet, 5 MG PO DAILY, (Reported) Entered as Reported by: AUSTIN OVERTON on 10/08/14 0932 Aspirin (Aspirin Ec 81 Mg) 81 Mg Tabec, 81 MG PO DAILY, (Reported) Entered as Reported by: CHYNA MOORE on 04/11/13 1158 Clopidogrel Bisulfate (Plavix) 75 Mg Tablet, 75 MG PO DAILY, (Reported) Entered as Reported by: STAR SHELBY on 11/24/22 0756 Lisinopril (Prinivil) 20 Mg Tablet, 20 MG PO HS, (Reported) Entered as Reported by: ANDRZEJ SHIRLEY on 04/03/13 1451 Metformin HCl (Metformin HCl ER) 750 Mg Tab.er.24h, 1,500 MG PO DAILY Prescribed by: MIR VALDES on 11/25/22 0804 Metoprolol Tartrate (Metoprolol Tartrate) 25 Mg Tablet, 25 MG PO BID, (Reported) Entered as Reported by: STAR SHELBY on 11/24/22 0756 Pantoprazole Sodium (Pantoprazole Sodium) 40 Mg Tablet.dr, 40 MG PO DAILY, (Reported) Entered as Reported by: MEERA MEAD on 03/24/22 0917 Pravastatin Sodium (Pravachol) 10 Mg Tablet, 10 MG PO HS, (Reported) Entered as Reported by: CHYNA MOORE on 04/11/13 1158 Semaglutide (Ozempic) 0.25 Mg/0.2 Ml Pen.injctr, 0.25 MG SQ WEEKLY ON , (Reported) Entered as Reported by: STAR SHELBY on 11/24/22 0756 Review of Systems Review of Systems Constitutional: see HPI EENTM: No Symptoms Reported Respiratory: Shortness of Air Cardiovascular: Chest Pain ("discomfort"), Palpitations (heart racing) Gastrointestinal: No Symptoms Reported Genitourinary: No Symptoms Reported Musculoskeletal: no symptoms reported Skin: no symptoms reported Psychiatric/Neurological: No Symptoms Reported All Other Systems Reviewed Negative Unless Noted: Yes Past Gzbjaka-Nllhue-Mctdrl Hx Immunizations Up To Date Tetanus Booster (TDap): Unknown First/Initial COVID19 Vaccinat: 2020 Second COVID19 Vaccination Vik: 2020 Seasonal Allergies Seasonal Allergies: Yes Past Medical History Surgeries: Yes (lipoma x 4, Fasciotomy right leg, 3 stents to right leg, breast lumpectomy) Breast, CABG, Gallbladder, Hysterectomy Respiratory: No Currently Using CPAP: No Currently Using BIPAP: No Cardiac: Yes (States per Dr. Valdes - need to see in brenda) Angina, Coronary Artery Disease, High Cholesterol, Hypertension Neurological: No Reproductive Disorders: Yes Female Reproductive Disorders: Endometriosis Gastrointestinal: Yes Gastroesophageal Reflux Musculoskeletal: Yes Arthritis Endocrine: No HEENT: Yes (wears glasses) Cancer: No Psychosocial: No Anxiety, Depression Integumentary: No Recent Skin Changes Blood Disorders: No Adverse Reaction/Blood Tranf: No Family Medical History No Pertinent Family Hx Physical Exam Vital Signs Vital Signs - First Documented 12/04/22 17:13 Temp 36.1 Pulse 156 Resp 25 B/P (MAP) 145/66 (92) Pulse Ox 98 Capillary Refill : Height, Weight, BMI Height: 5'0.00" Weight: 200lbs. 0.0oz. 90.836059dm; 31.17 BMI Method:Estimated General Appearance: No Apparent Distress, WD/WN HEENT: PERRL/EOMI Neck: Normal Inspection Respiratory: Lungs Clear, Normal Breath Sounds, No Accessory Muscle Use, No Respiratory Distress Cardiovascular: Regular Rate, Rhythm, Normal Peripheral Pulses Gastrointestinal: Non Tender, Soft Extremity: Normal Capillary Refill, Normal Inspection, No Pedal Edema Neurologic/Psychiatric: Alert, Oriented x3, No Motor/Sensory Deficits, Normal Mood/Affect Skin: Normal Color, Warm/Dry Progress/Results/Core Measures Results/Orders Lab Results Laboratory Tests Test 12/04/22 17:19 Range/Units White Blood Count 14.9 H 4.3-11.0 10^3/uL Red Blood Count 5.53 H 3.80-5.11 10^6/uL Hemoglobin 16.9 H 11.5-16.0 g/dL Hematocrit 47 35-52 % Mean Corpuscular Volume 86 80-99 fL Mean Corpuscular Hemoglobin 31 25-34 pg Mean Corpuscular Hemoglobin Concent 36 32-36 g/dL Red Cell Distribution Width 13.2 10.0-14.5 % Platelet Count 325 130-400 10^3/uL Mean Platelet Volume 10.3 9.0-12.2 fL Immature Granulocyte % (Auto) 1 % Neutrophils (%) (Auto) 49 42-75 % Lymphocytes (%) (Auto) 43 12-44 % Monocytes (%) (Auto) 6 0-12 % Eosinophils (%) (Auto) 2 0-10 % Basophils (%) (Auto) 1 0-10 % Neutrophils # (Auto) 7.3 1.8-7.8 10^3/uL Lymphocytes # (Auto) 6.4 H 1.0-4.0 10^3/uL Monocytes # (Auto) 0.8 0.0-1.0 10^3/uL Eosinophils # (Auto) 0.3 0.0-0.3 10^3/uL Basophils # (Auto) 0.1 0.0-0.1 10^3/uL Immature Granulocyte # (Auto) 0.1 0.0-0.1 10^3/uL Sodium Level 135 135-145 MMOL/L Potassium Level 4.0 3.6-5.0 MMOL/L Chloride Level 101 98-107 MMOL/L Carbon Dioxide Level 20 L 21-32 MMOL/L Anion Gap 14 5-14 MMOL/L Blood Urea Nitrogen 12 7-18 MG/DL Creatinine 0.81 0.60-1.30 MG/DL Estimat Glomerular Filtration Rate 86 BUN/Creatinine Ratio 15 Glucose Level 133 H 70-105 MG/DL Calcium Level 10.0 8.5-10.1 MG/DL My Orders Orders - VIPUL ARRIOLA MD Ekg Tracing (12/04/22 17:19) Adenosine Injection (Adenocard Injection (12/04/22 17:17) Ed Iv/Invasive Line Start (12/04/22 17:20) Cbc With Automated Diff (12/04/22 17:20) Basic Metabolic Panel (12/04/22 17:20) Ns Iv 1000 Ml (Sodium Chloride 0.9%) (12/04/22 17:20) Adenosine Injection (Adenocard Injection (12/04/22 17:30) Manual Differential (12/04/22 17:19) Vital Signs/I&O 12/04/22 17:13 Temp 36.1 Pulse 156 Resp 25 B/P (MAP) 145/66 (92) Pulse Ox 98 Progress Progress Note : Time: 17:51 Progress Note Patient seen and evaluated by me, 57-year-old who presents with arrhythmia/SVT. Evaluation today includes physical exa, EKG x2, CBC, basic metabolic panel. Differential diagnosis based on history and for physical exam, SVT, electrolyte imbalance. Patient cardioverted by Valsalva prior to my evaluation. Complete resolution of symptoms. Feels back to normal. CBC reviewed, mild leukocytosis. Chemistry generally normal. Her vital signs have remained stable since she converted back into a normal sinus rhythm. Patient is strongly encouraged to quit smoking. She has follow-up scheduled with Dr. Arik Humphrey cardiology at [facility] this week. I have encouraged her to drink plenty of fluids, avoid any stimulant medications such as cold medications, excessive caffeine and her nicotine. She verbalized understanding. Anticipate discharge to home shortly. No clinical or objective findings concerning for acute coronary syndrome or any other pathology that would require hospitalization at this point Initial ECG Impression Date: Dec 04, 2022 Initial ECG Impression Time: 17:20 Initial ECG Rate: 152 Initial ECG Rhythm: SVT EKG : EKG Time: 17:20 Rate: 73 Rhythm: Normal Sinus Intervals MT interval 147 QRS 90 QTc 510 ECG Comparisson: Changed Comment Low voltage throughout, sinus arrhythmia Counseling-Symptomatic: 3-10 Minutes Follow-up with PCP to: Discuss Further Options Departure Impression Primary Impression: SVT (supraventricular tachycardia) Disposition: 01 HOME, SELF-CARE Condition: Improved Departure-Patient Inst. Decision time for Depature: 17:53 Referrals: [facility] (PCP) Primary Care Physician JIMBO JAIME (Family) Primary Care Physician Patient Instructions: Paroxysmal Supraventricular Tachycardia (DC) Add. Discharge Instructions: Continue your daily medications as prescribed by your heart doctor. Please keep your follow-up appointment with Dr. Humphrey this week. Try and avoid any stimulant cold medications, excessive caffeine and really try and cut back on your smoking. Return to the emergency department for any new, concerning or emergent complaints. Copy Copies To 1: MIR VALDES MD Copies To 2: SANTANA JONES KATHRYN M MD Dec 04, 2022 17:28
[2022-12-04 17:44] LABS: CREATININE SERUM 0.81 MG/DL (0.60-1.30)
[2022-12-04 18:14] LABS: EOSINOPHILS % (MANUAL) 2 %; LYMPHOCYTES % (MANUAL) 50 %; MONOCYTES % (MANUAL) 2 %; NEUTROPHILS % (MANUAL) 46 %; RBC MORPH NORMAL
[2022-12-04 18:37] VITALS: BP 112/58
== END 2022-12-04 18:37 | disposition home or self-care (01) ==
LOC: EDUNIT# 17:08 → ER 17:11
DX: I47.1 Supraventricular tachycardia (principal); D72.829 Elevated white blood cell count, unspecified; F17.210 Nicotine dependence, cigarettes, uncomplicated; Z95.1 Presence of aortocoronary bypass graft; Z98.61 Coronary angioplasty status
CPT/HCPCS: 36415; 80048; 85007; 85027; 93005